=== PATIENT | female | born 1990 | race Caucasian/White ===

== ENCOUNTER 2023-12-11 08:33 | Outpatient (CLI) | payer MEDICAID | END 2023-12-11 08:34 | disposition home or self-care (01) | LOC: BICMAMMO 08:33 | PROVIDERS: ATTEND Nurse Practitioner Family | DX: N63.21 Unspecified lump in the left breast, upper outer quadrant (principal); N63.25 Unspecified lump in the left breast, overlapping quadrants | CPT/HCPCS: 77066; G0279 ==